=== PATIENT | male | born 1970 | race Two or more races ===

== ENCOUNTER 2022-06-02 19:19 | Emergency (ER) | payer OTHER ==
[~2022-06-02] VITALS: Ht 167.6 cm; Wt 56.7 kg
--- NOTE | 2022-06-02 19:36 | NUR ---
[id number]. WEAKNESS AND FATIGUE X TODAY. PLACED ON BED, AAOX4, DIAPHORETIC, HYPERVENTILATING SATURATING AT 97%MD ANTONIO AT BEDSIDE.
--- NOTE | 2022-06-02 19:45 | NUR ---
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
[2022-06-02] MEDS ORDERED: IV NS 0.9% 1,000 ML BAG IV ONE ×2 (20:00→22:00)
[2022-06-02 20:39] LABS: BASOPHILS # (AUTO) 0.1 K/uL (0.0-0.2); BASOPHILS % (AUTO) 0.3 % (0.0-2.0); HEMATOCRIT 35 % (39-51); HEMOGLOBIN 10.9 g/dL (13.5-17.5); LYMPHOCYTES # (AUTO) 1.5 K/uL (0.8-4.8); LYMPHOCYTES % (AUTO) 6.9 % (20.0-44.0); MEAN CORPUSCULAR HGB CONC 31 g/dl (31.0-36.0); MEAN CORPUSCULAR VOLUME 90 fL (80-96); MONOCYTES # (AUTO) 1.4 K/uL (0.1-1.30); MONOCYTES % (AUTO) 6.6 % (2.0-12.0); NEUTROPHILS # (AUTO) 18.6 K/uL (1.8-8.9); NEUTROPHILS % (AUTO) 86.2 % (43.0-81.0); RED BLOOD CELL COUNT(AUTO) 3.95 MIL/uL (4.5-6.0); WHITE BLOOD COUNT (AUTO) 21.6 K/uL (4.3-11.0)
[2022-06-02 20:45] LABS: PLATELET COUNT (AUTO) 1387 K/uL (150-450)
--- NOTE | 2022-06-02 20:46 | NUR ---
GREGOR MOTLEY [id number]. NOTIFIED
[2022-06-02 20:52] LABS: CALCIUM, SERUM 8.6 mg/dL (8.5-10.1); CARBON DIOXIDE 14 mmol/L (21-32); CHLORIDE 94 mmol/L (98-107); CREATININE 2.3 mg/dL (0.6-1.3); GLUCOSE 213 mg/dL (74-106); POTASSIUM 4.7 mmol/L (3.5-5.1); SODIUM SERUM 133 mmol/L (136-145); UREA NITROGEN, BLOOD 55 mg/dL (7-18)
[2022-06-02 21:21] VITALS: BP 113/63
--- NOTE | 2022-06-02 21:27 | NUR ---
[facility] PAGED PER DR ORTIZ.
--- NOTE | 2022-06-02 21:32 | NUR ---
SWAB FOR COVID19 SENT TO LAB
[2022-06-02 21:49] LABS: ALANINE AMINOTRANSFERASE 73 U/L (12-78); ALBUMIN 3.6 g/dL (3.4-5.0); ALKALINE PHOSPHATASE 129 U/L (46-116); ASPARTATE AMINOTRANSFERASE 77 U/L (15-37); BILIRUBIN,DIRECT 0.2 mg/dL (0.0-0.2); BILIRUBIN,TOTAL 0.9 mg/dL (0.2-1.0); TOTAL PROTEIN, SERUM 6.6 g/dL (6.4-8.2)
--- NOTE | 2022-06-02 21:55 | NUR ---
on phone with louie Snyder
[2022-06-02 22:19] LABS: BAND % (MANUAL) 2 % (0.0-5.0); LYMPHOCYTES % (MANUAL) 6 % (16-48); MONOCYTES % (MANUAL) 3 % (0-11.0); NEUTROPHILS % (MANUAL) 89 (42-76)
--- NOTE | 2022-06-02 22:33 | NUR ---
PT ACCEPTED TO [facility] BY DR GARCIA. # FOR REPORT [phone]. [facility] ETA [phone]
--- NOTE | 2022-06-02 22:50 | NUR ---
PATIENT HAD A BOWEL MOVEMENT AND CLOTS OF BLOOD NOTED DR LINK AWARE.
[2022-06-02] MEDS ORDERED: PANTOPRAZOLE 40 MG VIAL ONE (22:58)
[2022-06-02] MEDS ORDERED: PANTOPRAZOLE 80 MG in IV NS 0.9% 500 ML IV ONE (23:00)
[2022-06-02] MEDS ORDERED: CEFTRIAXONE 1GM BAG (ER ONLY) 1 GM/50 ML PIGGYBACK IV ONE (23:00)
--- NOTE | 2022-06-02 23:16 | NUR ---
report given to Mariely GUALLPA to continue care.
[2022-06-02] MEDS ORDERED: CEFTRIAXONE 1GM BAG (ER ONLY) 50 ML IV ONE (23:17)
[2022-06-02] MEDS ORDERED: ONDANSETRON HCL/PF 4 MG/2 ML VIAL ONE (23:30)
[2022-06-02] MEDS ORDERED: ONDANSETRON HCL/PF - ER 4 MG/2 ML VIAL IV ONE (23:30)
[2022-06-02] MEDS ORDERED: MORPHINE SULFATE INJ 4 MG/ML DISP.SYRIN ONE (23:30)
[2022-06-02] MEDS ORDERED: MORPHINE SULFATE INJ 10 MG/ML DISP.SYRIN IV ONE (23:30)
--- NOTE | 2022-06-02 23:48 | NUR ---
patient picked up by private ambulance going to [facility] in no distress.
== END 2022-06-02 23:48 | disposition short-term general hospital (02) ==
LOC: ER 19:21
DX: R53.1 Weakness (principal); E87.2 Acidosis; D75.839 Thrombocytosis, unspecified; Z20.822 Contact with and (suspected) exposure to COVID-19; N19 Unspecified kidney failure; R00.0 Tachycardia, unspecified; F10.20 Alcohol dependence, uncomplicated
CPT/HCPCS: 99285; 96365; 96361 ×2; 96375 ×2; 93005; 71045; 85025; 80048; 83690; 80076; 85007; 36415; 84484; 87426; 80320; J2270; J2405; J7030 ×2; J7040; C9113; J0696; C9803; G0480